=== PATIENT | female | born 1935 | race Caucasian/White ===

== ENCOUNTER 2016-07-05 09:57 | Emergency (ER) | payer OTHER, MEDICARE ==
[~2016-07-05] VITALS: Ht 162.6 cm; Wt 131.5 kg
[~2016-07-05 09:57] MED LIST: ASPIRIN EC81 M1 PO; CLOPIDOGREL75 M1 PO; GLYBURIDE5 M1 PO; HYDROCHLOROTHIA25 M1 PO; K-TAB ER20 MEQ PO; LASIX40 M1 PO; LIPITOR40 M1 PO; METFORMIN HCL1000 M1 PO; METOPROLOL TA37.5 MG PO; MYCOSTATIN POWD15 GM TOP; TRAMADOL HCL50 M1 PO; TRAZODONE HCL50 M1 PO
[2016-07-05] MEDS ORDERED: LIDOCAINE1 EACH TOP (10:13)
[2016-07-05] MEDS ORDERED: ESCITALOPRAM OX10 MG PO (10:15)
[2016-07-05] MEDS ORDERED: OMEPRAZOLE20 M2 PO (10:18)
--- NOTE | 2016-07-05 10:18 | ED NEURO DEFICIT/STROKE ---
History of Present Illness General Chief Complaint: Neuro Symptoms/ Deficit Stated Complaint: FACIAL DROOP Source: family, EMS, W10 Exam Limitations: clinical condition Vital Signs & Intake/Output Vital Signs & Intake/Output Vital Signs Date Time Temp Pulse Resp B/P Pulse O2 O2 Flow FiO2 Ox Delivery Rate 07/05 1304 97.4 78 20 124/60 97 Room Air 07/05 1006 97.0 81 20 117/53 98 Room Air Allergies Coded Allergies: No Known Allergies (07/05/16) Reconcile Medications Aspirin (Ecotrin*) 81 MG TABLET.DR 1 TAB PO DAILY BLOOD THINNER (Reported) Atorvastatin Calcium (Lipitor) 40 MG TABLET 1 TAB PO 1700 CHOLESTEROL ( Reported) Clopidogrel Bisulfate (Clopidogrel) 75 MG TABLET 1 TAB PO DAILY BLOOD THINNER (Reported) Cranberry Extract (Cranberry) (Unknown Strength) TABLET (Unknown Dose) PO BID SUPPLEMENT (Reported) Escitalopram Oxalate 10 MG TABLET 1 TAB PO DAILY MENTAL HEALTH (Reported) Furosemide (Lasix) 40 MG TABLET 1 TAB PO DAILY WATER PILL (Reported) Glyburide 5 MG TABLET 1 TAB PO DAILY DIABETES (Reported) Hydrochlorothiazide 25 MG TABLET 1 TAB PO DAILY WATER PILL (Reported) Lidocaine 5 % ADH..PATCH 1 PAT TOP DAILY PAIN (Reported) Melatonin 3 MG TABLET 1 TAB PO QPM SLEEP (Reported) Metformin HCl 1,000 MG TABLET 1 TAB PO BID DIABETES (Reported) Metoprolol Tartrate 37.5 MG TABLET 1 TAB PO BID BP (Reported) Omeprazole 20 MG CAPSULE.DR 1 CAP PO DAILY GI (Reported) Potassium Chloride (K-Tab ER) 20 MEQ TABLET.ER 1 TAB PO BID SUPPLEMENT ( Reported) Tramadol HCl 50 MG TABLET 1 TAB PO 1900 PAIN (Reported) Trazodone HCl 50 MG TABLET 0.5 TAB PO QPM SLEEP (Reported) Core Measure Meds Pre-Hospital already took aspirin this morning Triage Note: PT BIBA FROM [facility] WITH C/O LEFT SIDED WEAKNESS SINCE 0830 THIS MORNING WHEN SHE WOKE UP. UNKNOWN WHEN PT WAS LAST SEEN NORMAL. + SLURRED SPEECH WHICH FAMILY MEMBERS STATES IS ON AND OFF SINCE LAST STROKE. + RESIDUAL WEAKNESS FROM LAST STROKE. [facility] AT BEDSIDE TO EVALUATE Triage Nurses Notes Reviewed? yes HPI: 81-year-old female arrives by ambulance to room 4 from [facility] for evaluation of left-sided weakness and unresponsiveness this morning. Unknown time frame but Edel was found unresponsive this morning according to her family for about 20-30 minutes. She has a history of a right MCA infarct, chronic atrial fibrillation with no anticoagulants due to a history of vaginal bleeding. Also has a history of hypertension, hyperlipidemia and diabetes. 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 Upon arrival to the emergency department she was able to respond to commands and speak with no issues. Family reports that she was back to her baseline. Edel denies any chest pain, shortness of breath and reports that she is just hungry. Edel has been on Coumadin, Xarelto, and Eliquis with full doses with issues of abmnormal vaginal bleeding. workup in the past as been unrealing so they kept her off AC therapy because of this. She is currently on aspirin 81 mg daily and Plavix 75 mg daily. (BRETT WATSON APRN) Past History Travel History Traveled to [place] past 21 day No Medical History Any Pertinent Medical History? see below for history Neurological: CVA, TIA EENT: NONE Cardiovascular: AFIB, hypertension, hyperlipidemia Respiratory: NONE Gastrointestinal: NONE Hepatic: NONE Renal: NONE Musculoskeletal: osteoarthritis, HX RIGHT FOREARM FX Psychiatric: NONE Endocrine: diabetes Blood Disorders: NONE Cancer(s): NONE GEOTHERMAL OPERATIONS ENGINEER/Reproductive: NONE History of MRSA: No History of VRE: No History of CDIFF: No Pneumonia Vaccine: 02/02/11 Surgical History Surgical History: non-contributory Psychosocial History Who do you live with Patient/Self Services at Home Home Health Aide What is your primary language Faroese Tobacco Use: Quit >30 days ago ETOH Use: denies use Illicit Drug Use: denies illicit drug use Family History Family History, If Any: FATHER ([place] at the age of 72). SISTER ( at the age of 62 with [place]). Hx Contributory? No (BRETT WATSON APRN) Review of Systems Review of Systems Constitutional: Reports: no symptoms. EENTM: Reports: no symptoms. Respiratory: Reports: no symptoms. Cardiovascular: Reports: no symptoms. GI: Reports: no symptoms. Genitourinary: Reports: no symptoms. Musculoskeletal: Reports: no symptoms. Skin: Reports: no symptoms. Neurological/Psychological: Reports: pre-existing deficit. Hematologic/Endocrine: Reports: no symptoms. Immunologic/Allergic: Reports: no symptoms. All Other Systems: Reviewed and Negative (BRETT WATSON APRN) Physical Exam Physical Exam General Appearance: well developed/nourished, no apparent distress, alert, awake , comfortable, obese Head: atraumatic, normal appearance Eyes: Bilateral: normal appearance, PERRL, EOMI. Ears, Nose, Throat: normal ENT inspection, hearing grossly normal Neck: normal inspection, supple, full range of motion Respiratory: normal breath sounds, chest non-tender, no respiratory distress Cardiovascular: irregularly irregular Peripheral Pulses: 2+ radial (R), 2+ radial (L) Gastrointestinal: normal bowel sounds, soft, non-tender Extremities: normal range of motion Psychiatric: awake, alert Cranial Nerves: normal hearing, normal speech, PERRL, facial droop Coordination/Gait: alayna lift Motor/Sensory: weak motor strength LUE, weak motor strength LLE Skin: intact, normal color, warm/dry Core Measures CVA/TIA Diagnosis: Yes NIH Stroke Scale: Total 5 Neurological S/S of CVA: Difficulty Speaking, Facial Hemiparesis, Left Hemiparesis Reason tPA not ordered+ Medical Contraindication Severe Sepsis Present: No Septic Shock Present: No Bedside Dysphagia Screen Bedside Swallow Eval Done: Yes Result of Evaluation: Pass CHADS2 CHADS2 Response Value Hypertension History yes 1 Age >/= 75 yes 1 Diabetes Mellitus History yes 1 Stroke or TIA Symptoms Previously yes 2 Total 5 (BRETT WATSON APRN) Progress Differential Diagnosis: electrolyte imbalance, hypoglycemia, intracranial mass/ tumor, stroke Plan of Care: Orders Procedure Date/time Status Regular Diet 07/05 D Active Saline Lock 07/05 1009 Active Telemetry/Children Librarian 07/05 1009 Active TROPONIN LEVEL 07/05 1009 Complete PARTIAL THROMBOPLASTIN TIME 07/05 1009 Complete PROTHROMBIN TIME 07/05 1009 Complete COMPREHENSIVE METABOLIC PANEL 07/05 1009 Complete CBC WITHOUT DIFFERENTIAL 07/05 1009 Complete EKG 07/05 1001 Active Laboratory Tests 07/05/16 1027: Anion Gap 13, Estimated GFR > 60, BUN/Creatinine Ratio 21.4, Glucose 143 H, Calcium 9.6, Total Bilirubin 0.7, AST 21, ALT 29, Alkaline Phosphatase 68, Troponin I 0.06, Total Protein 7.8, Albumin 3.5, Globulin 4.3 H, Albumin/ Globulin Ratio 0.8 L, PT 12.4, INR 1.18, APTT 30, CBC w Diff NO MAN DIFF REQ, RBC 4.62, MCV 88.2, MCH 28.5, RDW 15.7 H, MPV 8.4, Gran % 68.2, Lymphocytes % 22.3, Monocytes % 6.1, Eosinophils % 3.0, Basophils % 0.4, Absolute Granulocytes 5.5, Absolute Lymphocytes 1.8, Absolute Monocytes 0.5, Absolute Eosinophils 0.2, Absolute Basophils 0, PUBS MCHC 32.3 L Initial ED EKG: ATRIAL FIBRILLATION WITH NONSPECIFIC st-t WAVE CHANGES ALSO ANTERIOR INFARCT WHICH IS OLD. nO OLD TO COMPARE Comments: PATIENT: EDEL RESENDIZ PRESENT AGE: 81 PATIENT ACCOUNT NO: [id number] : 37 LOCATION: [facility] ORDERING PHYSICIAN: BRETT WATSON APRN SERVICE DATE: 07/05/16 EXAM TYPE: RAD - XRY-PORTABLE CHEST XRAY EXAMINATION: XR PORTABLE CHEST CLINICAL INFORMATION: 81-year-old female with shortness of breath. COMPARISON: Chest x-ray on 01/07/2013. TECHNIQUE: Portable AP portable semierect view of the chest was obtained. FINDINGS: Reexamination shows continued enlargement of the heart. Lungs are free of edema or consolidating pneumonia. No pleural effusion is seen. IMPRESSION: Heart enlarged. No other evidence of CHF. DICTATED BY: MICHAEL RUIZ MD DATE/TIME DICTATED:07/05/161102 FAMILY CENTERED SPECIALIST:AWILDA DATE/TIME TRANSCRIBED:07/05/161102 CONFIDENTIAL, DO NOT COPY WITHOUT APPROPRIATE AUTHORIZATION. <Electronically signed in Other Vendor System> SIGNED BY: MICHAEL RUIZ MD [id number] PATIENT: EDEL RESNEDIZ PRESENT AGE: 81 PATIENT ACCOUNT NO: [id number] : 37 LOCATION: ER ORDERING PHYSICIAN: BRETT WATSON APRN SERVICE DATE: 07/05/16 EXAM TYPE: CAT - CT HEAD WO IV CONTRAST EXAMINATION: CT HEAD WITHOUT CONTRAST CLINICAL INFORMATION: 81-year-old woman with left-sided weakness. COMPARISON: 12/26/[address] TECHNIQUE: Contiguous axial imaging was performed from the skull base to vertex without intravenous administration of contrast. DLP: 744 mGy-cm FINDINGS: No intracranial mass, hemorrhage, midline shift, or extra-axial collection is appreciated. A chronic area of infarction in the right MCA territory is again noted and appears similar to the prior study. The ventricles and sulcal spaces are diffusely prominent due to chronic volume loss, although appear approximately stable in overall size and contour. The paranasal sinuses are well aerated. IMPRESSION: No convincing CT evidence of an acute intracranial process. Chronic right MCA territory infarction. DICTATED BY: DEAN JI MD DATE/TIME DICTATED:07/05/161057 FAMILY CENTERED SPECIALIST:AWILDA DATE/TIME TRANSCRIBED:07/05/161057 CONFIDENTIAL, DO NOT COPY WITHOUT APPROPRIATE AUTHORIZATION. <Electronically signed in Other Vendor System> SIGNED BY: DEAN JI MD 07/05/16 1104 12:16 PM explained to family and patient all blood work results including CAT scan. No new findings. Discussed at length the probability of TIA and the need for anticoagulation. Edel has been off anticoagulation due to a history of vaginal bleeding. She has been on Coumadin and higher doses of all her questions and Xarelto. I explained to them we can send her back to the shelter with a low dose of Eliquis 2.5 mg twice a day at least for some cardioembolic protection. She would come off the aspirin and start Eliquis and they can monitor at [facility]. I discussed this with Dr. Worrell, Tai manager office services, who is covering for medical group. He agreed. Case discussed with Dr. Mendez. She passed swallow eval- two cups of water with no issues. She will eat here in the ED and observe her. One dose of Eliquis here and discharged back to SNF. Family in complete agreement. 1 PM patient able to eat a little bit of her food and drink 2 glasses of water additional. She tolerated Eliquis 2.5 mg well. [facility] ambulance has been called to transfer patient back to shelter. (BRETT WATSON APRN) Departure Departure Time of Disposition: 1255 Disposition: HOME OR SELF CARE Condition: Stable Clinical Impression Primary Impression: TIA (transient ischemic attack) Qualifiers: Transient cerebral ischemia type: other Qualified Code: G45.8 - Other transient cerebral ischemic attacks and related syndromes Referrals: ROHIT JJ,SUSHILA Casillas (PCP/Family) Departure Forms: Customer Survey General Discharge Information (BRETT WATSON APRN) PA/ANDROID IOS DEVELOPER Co-Sign Statement Statement: ED Attending supervision documentation- x I saw and evaluated the patient. I have also reviewed all the pertinent lab results and diagnostic results. I agree with the findings and the plan of care as documented in the PA's/ANDROID IOS DEVELOPER's documentation. [] I have reviewed the ED Record and agree with the PA's/ANDROID IOS DEVELOPER's documentation. [] Additions or exceptions (if any) to the PAs/ANDROID IOS DEVELOPER's note and plan are summarized below: [] (ANYA JJ,JENNI)
[2016-07-05] MEDS ORDERED: CRANBERRY300 MG PO (10:20)
[2016-07-05] MEDS ORDERED: MELATONIN3 M4 PO (10:20)
[2016-07-05 10:43] LABS: ABSOLUTE BASOPHIL COUNT 0 /CUMM (0.0-0.2); ABSOLUTE EOSINOPHIL COUNT 0.2 /CUMM (0.0-0.7); ABSOLUTE GRANULOCYTE CT 5.5 /CUMM (1.4-6.5); ABSOLUTE LYMPH COUNT 1.8 /CUMM (1.2-3.4); ABSOLUTE MONOCYTE COUNT 0.5 /CUMM (0.10-0.60); BASOPHIL % 0.4 % (0.0-2.0); GRANULOCYTE % 68.2 % (42.2-75.2); HEMATOCRIT 40.8 % (37-47); MEAN CORPUSCULAR HGB 28.5 PG (27.0-31.0); MEAN CORPUSCULAR HGB CONC 32.3 G/DL (33.0-37.0); MEAN CORPUSCULAR VOLUME 88.2 FL (81.0-99.0); MEAN PLATELET VOLUME 8.4 FL (7.4-10.4); PLATELET COUNT 298 /CUMM (130-400); RBC DISTRIBUTION WIDTH 15.7 % (11.5-14.5); RED BLOOD CELL CT 4.62 /CUMM (4.20-5.40); WHITE BLOOD CELL COUNT 8.1 /CUMM (4.8-10.8)
[2016-07-05 10:47] LABS: PT 12.4 SEC (9.4-12.5); PTT 30 SEC (25-37)
--- NOTE | 2016-07-05 11:06 | CT SCAN REPORT ---
EXAMINATION: CT HEAD WITHOUT CONTRAST CLINICAL INFORMATION: 81-year-old woman with left-sided weakness. COMPARISON: 12/26/[address] TECHNIQUE: Contiguous axial imaging was performed from the skull base to vertex without intravenous administration of contrast. DLP: 744 mGy-cm FINDINGS: No intracranial mass, hemorrhage, midline shift, or extra-axial collection is appreciated. A chronic area of infarction in the right MCA territory is again noted and appears similar to the prior study. The ventricles and sulcal spaces are diffusely prominent due to chronic volume loss, although appear approximately stable in overall size and contour. The paranasal sinuses are well aerated. IMPRESSION: No convincing CT evidence of an acute intracranial process. Chronic right MCA territory infarction.
--- NOTE | 2016-07-05 11:10 | RADIOLOGY REPORT ---
EXAMINATION: XR PORTABLE CHEST CLINICAL INFORMATION: 81-year-old female with shortness of breath. COMPARISON: Chest x-ray on 01/07/2013. TECHNIQUE: Portable AP portable semierect view of the chest was obtained. FINDINGS: Reexamination shows continued enlargement of the heart. Lungs are free of edema or consolidating pneumonia. No pleural effusion is seen. IMPRESSION: Heart enlarged. No other evidence of CHF.
[2016-07-05 13:04] VITALS: BP 124/60
== END 2016-07-05 13:14 ==
LOC: ERH 09:57
PROVIDERS: Nurse Practitioner Family
DX: G45.9 Transient cerebral ischemic attack, unspecified (principal); I48.91 Unspecified atrial fibrillation; I10 Essential (primary) hypertension; E11.9 Type 2 diabetes mellitus without complications; Z79.84 Long term (current) use of oral hypoglycemic drugs
CPT/HCPCS: 93005; 93010